=== PATIENT | male | born 1985 | race Caucasian/White ===

== ENCOUNTER 2018-05-15 07:11 | Observation (INO) ==
--- NOTE | 2018-05-15 07:44 | ED ---
HPI General Chief Complaint: Extremity Injury, Lower Stated Complaint: Fall Time Seen by Provider: 05/15/18 07:26 Source: patient Mode of arrival: ambulatory Limitations: no limitations History of Present Illness HPI Narrative: 33-year-old male presents to the emergency department with complaint of right ankle injury after he twisted it this morning. Reports numbness and tingling to his toes, but denies loss of sensation. Rates pain 10/ 10. No treatments tried. Pain is constant. No known relieving factors. Aggravated by palpation, movement. Primary CARE providers in [place]. No known allergies. History of hypertension and is compliant with medications. Has no other medical complaints. No other modifying factors or associated signs and symptoms. Related Data Home Medications Medication Instructions Recorded Confirmed losartan 25 mg PO DAILY 05/15/18 05/15/18 Allergies Allergy/AdvReac Type Severity Reaction Status Date / Time No Known Allergies Allergy Verified 05/15/18 08:13 Review of Systems ROS: all other systems reviewed are negative PMFSH History History Provided By: Patient Medical History Medical History Hypertension (Acute) Surgical History Surgical History No history of previous surgery (Acute) Family History Family History Other Hypertension Social History Social History Second Hand Smoke Exposure: Yes Smoking Status: Current every day smoker Tobacco Type: Cigarettes How Often Do You Have a Drink Containing Alcohol: 4 or more times a week Recent Travel in [facility] within the Last 8 Weeks: No Recent Out of Country Travel within the Last 8 Weeks: No Exam Narrative Exam Narrative: GENERAL: Well-nourished, well-developed male patient, in no acute distress SKIN: Warm and dry. HEAD: Atraumatic. Normocephalic. EYES: Pupils equal and round. No scleral icterus. No injection or drainage. ENT: Mucosa pink and moist. Airway patent. NECK: Trachea midline. CARDIOVASCULAR: Regular rate. RESPIRATORY: No accessory muscle use. GASTROINTESTINAL: Rounded. MUSCULOSKELETAL: Right ankle with point tenderness to the medial malleolar zone with palpation; with edema; no erythema or ecchymosis; no obvious deformity; toes are pink and warm and with good cap refill. Right Lower extremity is supple and nontense with 2+ pedal pulse and sensory intact. No obvious deformities. No clubbing. No cyanosis. No edema. NEUROLOGICAL: Awake and alert. Oriented 3. No obvious cranial nerve deficits. Motor grossly within normal limits. Normal speech. PSYCHIATRIC: Appropriate mood and affect; insight and judgment normal. Course Initial Documented Vital Signs Temperature 98.4 F 05/15/18 07:16 Pulse Rate 102 H 05/15/18 07:16 Respiratory Rate 18 05/15/18 07:16 Blood Pressure 139/90 05/15/18 07:16 Pulse Oximetry 95 05/15/18 07:16 Last Documented Vital Signs Temperature 98.4 F 05/15/18 07:16 Pulse Rate 102 H 05/15/18 07:16 Respiratory Rate 18 05/15/18 07:16 Blood Pressure 139/90 05/15/18 07:16 Pulse Oximetry 95 05/15/18 07:16 Medical Decision Making MDM Narrative Medical decision making narrative: 33-year-old male with right ankle injury. Right ankle x-ray, ibuprofen ordered. Ice pack in place. 0822: Right ankle x-ray concludes mildly displaced bimalleolar fractures. Call placed to orthopedic surgeon. [place] ordered. 0842: I spoke with Dr. Hernández and the patient will be admitted for surgery tomorrow. Díaz splint ordered and placed. Crutches ordered for support. I spoke with resident MD and report given for patient admission. Preop orders entered. Medical Screen Exam Complete: Yes Emergency Medical Condition: Yes Differential Diagnosis Differential Diagnosis: Ankle sprain, ankle fracture, ankle injury Lab Data Result diagrams: 05/15/18 09:00 05/15/18 09:00 Lab Results 05/15/18 05/15/18 05/15/18 Range/Units 09:00 09:00 12:03 WBC 12.1 H (4.0-11.0) th/mm3 RBC 4.85 (4.50-5.90) mil/mm3 Hgb 14.7 (13.0-17.0) gm/dL Hct 44.5 (39.0-51.0) % MCV 91.7 (80.0-100.0) fL MCH 30.4 (27.0-34.0) pg MCHC 33.1 (32.0-36.0) % RDW 13.8 (11.6-17.2) % Plt Count 264 (150-450) th/mm3 MPV 7.8 (7.0-11.0) fL Neut % (Auto) 71.5 H (16.0-70.0) % Lymph % (Auto) 18.2 (9.0-44.0) % [place] % (Auto) 7.8 (0.0-8.0) % Eos % (Auto) 1.7 (0.0-4.0) % Baso % (Auto) 0.8 (0.0-2.0) % Neut # (Auto) 8.6 H (1.8-7.7) th/mm3 Lymph # (Auto) 2.2 (1.0-4.8) th/mm3 [place] # (Auto) 0.9 (0.0-0.9) th/mm3 Eos # (Auto) 0.2 (0.0-0.4) th/mm3 Baso # (Auto) 0.1 (0.0-0.2) th/mm3 WBC Differential . Differential Comment Auto diff final PT (9.8-11.6) sec INR Ratio APTT (24.3-30.1) sec Sodium 137 (136-145) meq/L Potassium 3.9 (3.5-5.1) meq/L Chloride 105 (98-107) meq/L Carbon Dioxide 24.4 (21.0-32.0) meq/L Anion Gap 8 (5-15) meq/L BUN 14 (7-18) mg/dL Creatinine 0.73 (0.60-1.30) mg/dL Estimated GFR Greater than 89 (>89) mL/min Random Glucose 99 (74-106) mg/dL Calcium 8.4 L (8.5-10.1) mg/dL Total Bilirubin 0.2 (0.2-1.0) mg/dL AST 17 (15-37) U/L ALT 33 (12-78) U/L Alkaline Phosphatase 114 (45-117) U/L Total Protein 7.4 (6.4-8.2) g/dL Albumin 3.5 (3.4-5.0) g/dL Blood Type O Positive Blood Type Recheck Required Antibody Screen Negative 05/15/18 Range/Units 12:03 WBC (4.0-11.0) th/mm3 RBC (4.50-5.90) mil/mm3 Hgb (13.0-17.0) gm/dL Hct (39.0-51.0) % MCV (80.0-100.0) fL MCH (27.0-34.0) pg MCHC (32.0-36.0) % RDW (11.6-17.2) % Plt Count (150-450) th/mm3 MPV (7.0-11.0) fL Neut % (Auto) (16.0-70.0) % Lymph % (Auto) (9.0-44.0) % [place] % (Auto) (0.0-8.0) % Eos % (Auto) (0.0-4.0) % Baso % (Auto) (0.0-2.0) % Neut # (Auto) (1.8-7.7) th/mm3 Lymph # (Auto) (1.0-4.8) th/mm3 [place] # (Auto) (0.0-0.9) th/mm3 Eos # (Auto) (0.0-0.4) th/mm3 Baso # (Auto) (0.0-0.2) th/mm3 WBC Differential Differential Comment PT 10.0 (9.8-11.6) sec INR 1.0 Ratio APTT 26.6 (24.3-30.1) sec Sodium (136-145) meq/L Potassium (3.5-5.1) meq/L Chloride (98-107) meq/L Carbon Dioxide (21.0-32.0) meq/L Anion Gap (5-15) meq/L BUN (7-18) mg/dL Creatinine (0.60-1.30) mg/dL Estimated GFR (>89) mL/min Random Glucose (74-106) mg/dL Calcium (8.5-10.1) mg/dL Total Bilirubin (0.2-1.0) mg/dL AST (15-37) U/L ALT (12-78) U/L Alkaline Phosphatase (45-117) U/L Total Protein (6.4-8.2) g/dL Albumin (3.4-5.0) g/dL Blood Type Blood Type Recheck Antibody Screen Imaging Data Radiologist's impression: Ankle X-Ray 05/15/18 07:36 CONCLUSION: Mildly displaced bimalleolar fractures Discharge Plan Discharge Disposition Patient Disposition: 30 Still Patient Discharge Condition Condition: Stable Discharge Details Diagnosis: Bimalleolar fracture of right ankle Physicians Team ED Provider: Juan Carlos Soto ED Midlevel Provider: Minerva Crum Primary Care Provider: UNKNOWN, Attending Provider: Baljit Meek Other Providers: Diego Ivan Status ED Status: Left Department Discharge Information Discharge Date/Time: 05/15/18 10:26
--- NOTE | 2018-05-15 08:15 | XR ---
EXAM DATE: 05/15/2018 7:36 AM EDT AGE/SEX: 33 years / Male INDICATIONS: Right lateral and medial ankle pain, post fall. CLINICAL DATA: This is the patient's initial encounter. Patient reports that signs and symptoms have been present for 1 day and indicates a pain score of 8/10. MEDICAL/SURGICAL HISTORY: None. None. COMPARISON: No prior exams available for comparison. FINDINGS: Views of the right ankle demonstrate soft tissue swelling. Bimalleolar fractures with mild displaceme nt. Ankle mortise intact. No radiopaque foreign bodies seen. CONCLUSION: Mildly displaced bimalleolar fractures Electronically signed by: Lewis Kwan MD 05/15/2018 8:13 AM EDT
[2018-05-15 09:30] LABS: Baso # (Auto) 0.1 th/mm3 (0.0-0.2); Baso % (Auto) 0.8 % (0.0-2.0); Eos # (Auto) 0.2 th/mm3 (0.0-0.4); Eos % (Auto) 1.7 % (0.0-4.0); Hematocrit 44.5 % (39.0-51.0); Hemoglobin 14.7 gm/dL (13.0-17.0); Lymph # (Auto) 2.2 th/mm3 (1.0-4.8); Lymph % (Auto) 18.2 % (9.0-44.0); Mean Corpuscular HGB Conc 33.1 % (32.0-36.0); Mean Corpuscular Hemoglobin 30.4 pg (27.0-34.0); Mean Corpuscular Volume 91.7 fL (80.0-100.0); Mean Platelet Volume 7.8 fL (7.0-11.0); Mono # (Auto) 0.9 th/mm3 (0.0-0.9); Mono % (Auto) 7.8 % (0.0-8.0); Neut # (Auto) 8.6 th/mm3 (1.8-7.7); Neut % (Auto) 71.5 % (16.0-70.0); Platelet Count 264 th/mm3 (150-450); Red Blood Count 4.85 mil/mm3 (4.50-5.90); Red Cell Distribution Width 13.8 % (11.6-17.2); White Blood Count 12.1 th/mm3 (4.0-11.0)
--- NOTE | 2018-05-15 09:34 | P.HPFP ---
History of Present Illness Primary Care Physician: UNKNOWN <Baljit Meek K - 05/15/18 15:01> UNKNOWN <Regi Del Rio T - 05/15/18 09:34> History of Present Illness: 33-year-old male with hypertension presents to the ED with right ankle pain. Patient is visiting from [place], [place]. He states that he is here with his kids and their mother. States that he woke up in the middle the night and went outside to smoke a cigarette. He then fell asleep and woke up with his leg caught in the rail. As he was standing up, he tripped and fell. He began to have swelling and redness immediately in his right ankle. He was unable to bear weight. He did not hit his head and denies loss of consciousness. Denies nausea and vomiting, vision changes, headache, seizure- like activity, chest pain, shortness of breath. He has not injured his ankle in the past. He states that his left ankle collapse about 3 years ago. States that his pain is 6 out of 10 right now after receiving pain medications in the ED. He is able to wiggle his toes and sensation is intact. No other complaints. 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[employer] Smoking 1-1/2ppd for 19 years Drinking- 4 days a week- 2-3 beers Denies illicit drug use <Regi Del iRo T - 05/15/18 10:33> - Diagnosis (1) Bimalleolar fracture of right ankle (2) Hypertension (3) Nutrition, metabolism, and development symptoms (4) Current smoker <Baljit Meek K - 05/15/18 15:01> (1) Bimalleolar fracture of right ankle (2) Hypertension (3) Nutrition, metabolism, and development symptoms (4) Current smoker <Regi Del Rio T - 05/15/18 13:57> Inpatient Certification: I certify that the inpatient services were ordered in accordance with Medicare regulations governing the order. This includes certification that hospital inpatient services are reasonable and necessary and in the case of services not specified as inpatient-only under 42 CFR 419.22(n), that they are appropriately provided as inpatient services in accordance to with the 2-midnight benchmark under 43 CFR 412.3(e) <Baljit Meek 05/15/18 15:01> Review of Systems Constitutional: Denies fever(s), Denies weakness, Denies weight loss <Regi Del Rio 05/15/18 10:33> Eyes: Denies blurry vision <Regi Del Rio 05/15/18 10:33> Ears, Nose, Mouth, and Throat: Denies headache(s) <Regi Del Rio 11:12> Cardiovascular: Denies chest pain, Denies lightheadedness, Denies shortness of breath <Regi Del Rio 05/15/18 10:33> Respiratory: Denies cough, Denies shortness of breath, Denies wheezing <Regi Del Rio 05/15/18 10:33> Gastrointestinal: Denies abdominal pain, Denies vomiting <Regi Del Rio 05/15/18 10:33> Genitourinary: Denies difficulty urinating <Regi Del Rio 05/15/18 10:33> Comments: Psoriasis rash on left ankle <Regi Del Rio 05/15/18 11:12> Neurologic: Denies confusion, Denies tingling/numbness/burning sensations <Regi Del Rio 05/15/18 11:12> Endocrine: Denies rapid, pounding, or irregular heartbeat <Regi Del Rio 05/15/18 11:12> Hematologic/Lymphatic: Denies easy bleeding <Regi Del Rio 05/15/18 11:12 > PMFSH - History History Provided By: Patient <QuangRegikinjal Solitario 05/15/18 09:34> - Medical History Medical History: Medical History (Last Updated 05/15/18 @ 07:39 by POLO Gutiérrez) Hypertension <Baljit Meek - 05/15/18 15:01> Medical History (Last Updated 05/15/18 @ 07:39 by POLO Gutiérrez) Hypertension <Regi Del Rio 05/15/18 09:34> - Surgical History Surgical History: Surgical History (Last Updated 05/15/18 @ 11:09 by Regi Del Rio MD, R2) No history of previous surgery <Baljit Meek - 05/15/18 15:01> Surgical History (Last Updated 05/15/18 @ 11:09 by Regi Del Rio MD, R2) No history of previous surgery <Regi Del Rio - 05/15/18 11:12> - Family History Family History: Family History (Last Updated 05/15/18 @ 11:10 by Regi Del Rio MD, R2) Other Hypertension <Baljit Meek - 05/15/18 15:01> Family History (Last Updated 05/15/18 @ 11:10 by Regi Del Rio MD, R2) Other Hypertension <Regi Del Rio - 05/15/18 11:12> - Social History I have reviewed the patient's Social History: Yes <Regi Del Rio - 11:12> - Tobacco History Second Hand Smoke Exposure: Yes <Regi Del Rio - 05/15/18 09:34> Tobacco Use In Past 30 Days: Yes <Regi Del Rio - 05/15/18 09:34> Smoking Status: Current every day smoker <Regi Del Rio - 05/15/18 09:34> Tobacco Type: Cigarettes <Regi Del Rio - 05/15/18 09:34> - Alcohol History How Often Do You Have a Drink Containing Alcohol: 4 or more times a week <Regi Del Rio - 05/15/18 09:34> - Travel History Recent Travel in the [facility] Within the Last 8 Weeks: No <Regi Del Rio - 05/15 09:34> Recent Travel Out of the Country Within the Last 8 Weeks: No <Regi Del Rio - 05/15/18 09:34> - Immunization History Tetanus Immunization: <5 Years <Regi Del Rio - 05/15/18 09:34> Medications and Allergies Allergies Allergy/AdvReac Type Severity Reaction Status Date / Time No Known Allergies Allergy Verified 05/15/18 08:13 <Baljit Meek - 05/15/18 15:01> Home Medications Medication Instructions Recorded Confirmed Type losartan 25 mg PO DAILY 05/15/18 05/15/18 History <Baljit Meek - 05/15/18 15:01> Active Medications: Active Medications Hydrocodone Bitart/Acetaminophen (Merriman 7.5/325) 1 tab PO Q4H PRN PRN Reason: PAIN SCALE 6 TO 10 Last Admin: 05/15/18 12:05 Dose: 1 tab Hydrocodone Bitart/Acetaminophen (Merriman 5/325) 1 tab PO Q4H PRN PRN Reason: PAIN SCALE 3 TO 5 Hydrochlorothiazide (Hydrodiuril) 25 mg PO DAILY REPLACED BY [facility] Last Admin: 05/15/18 13:58 Dose: Not Given Ibuprofen (Motrin) 400 mg PO Q6HR PRN PRN Reason: PAIN SCALE 1 TO 2 Losartan Potassium (Cozaar) 100 mg PO DAILY REPLACED BY [facility] Last Admin: 05/15/18 13:57 Dose: Not Given Morphine Sulfate (Morphine Inj) 4 mg IV.PUSH Q3H PRN PRN Reason: BREAKTHROUGH PAIN Naloxone HCl (Narcan Inj) 0.4 mg IV.PUSH UNSCH PRN PRN Reason: SEE LABEL COMMENTS Nicotine (Habitrol 21 Mg Patch.24 Hr) 1 patch T-DERMAL DAILY REPLACED BY [facility] Patch Removal (Remove Old Patch) 1 each T-DERMAL HS REPLACED BY [facility] <Baljit Meek - 05/15/18 15:01> Exam Vital signs: Vital Signs 05/15/18 07:16 Temperature 98.4 F Pulse Rate 102 H Respiratory Rate 18 Blood Pressure 139/90 Pulse Oximetry 95 Intake & Output 05/14/18 05/15/18 05/15/18 18:59 06:59 18:59 Weight 136.078 kg <Baljit Meek - 05/15/18 15:01> Vital Signs 05/15/18 07:16 Temperature 98.4 F Pulse Rate 102 H Respiratory Rate 18 Blood Pressure 139/90 Pulse Oximetry 95 Intake & Output 05/14/18 05/15/18 05/15/18 18:59 06:59 18:59 Weight 136.078 kg <Regi Del Rio T - 05/15/18 09:34> Narrative: General: Pleasant male in no acute distress HENT: PERRLA, EOMI, throat clear, no lymphadenopathy Cardio: Regular rate rhythm, no murmurs rubs or gallops Respiratory: Clear to auscultation bilaterally no wheezing or crackles Abdomen: Soft, nontender, nondistended, positive bowel sounds Extremities: Right leg wrapped in bandage, patient able to wiggle right toes, sensation intact Neuro: Alert and oriented <Regi Del Rio - 05/15/18 11:12> Results - Labs Result diagrams: 05/15/18 09:00 05/15/18 09:00 <Baljit Meek 05/15/18 15:01> Abnormal lab results 05/15/18 05/15/18 Range/Units 09:00 09:00 WBC 12.1 H (4.0-11.0) th/mm3 Neut % (Auto) 71.5 H (16.0-70.0) % Neut # (Auto) 8.6 H (1.8-7.7) th/mm3 Calcium 8.4 L (8.5-10.1) mg/dL Short CBC 05/15/18 Range/Units 09:00 WBC 12.1 H (4.0-11.0) th/mm3 Hgb 14.7 (13.0-17.0) gm/dL Hct 44.5 (39.0-51.0) % Plt Count 264 (150-450) th/mm3 [facility] 05/15/18 09:00 Sodium 137 Potassium 3.9 Chloride 105 Carbon Dioxide 24.4 BUN 14 Creatinine 0.73 Calcium 8.4 L Liver Function 05/15/18 Range/Units 09:00 Total Bilirubin 0.2 (0.2-1.0) mg/dL AST 17 (15-37) U/L ALT 33 (12-78) U/L Alkaline Phosphatase 114 (45-117) U/L Albumin 3.5 (3.4-5.0) g/dL <Baljit Meek - 05/15/18 15:01> - Imaging Impressions Ankle X-Ray 05/15/18 07:36 CONCLUSION: Mildly displaced bimalleolar fractures <Baljit Meek 05/15/18 15:01> Impressions Ankle X-Ray 05/15/18 07:36 CONCLUSION: Mildly displaced bimalleolar fractures <Regi Del Rio - 05/15/18 09:34> Caprini VTE Risk Assessment Caprini VTE Risk Assessment: No/Low Risk (score <= 1) <Regi Del Rio 05/23 11:12> Caprini Risk Assessment Model: Point Value = 1 Point Value = 2 Point Value = 3 Point Value = 5 Age 41-60 Minor surgery BMI > 25 kg/m2 Swollen legs Varicose veins or History of unexplained or recurrent spontaneous Oral contraceptives or hormone replacement Sepsis (< 1 month) Serious lung disease, including pneumonia (< 1 month) Abnormal pulmonary function Acute myocardial infarction Congestive heart failure (< 1 month) History of inflammatory bowel disease Medical patient at bed rest Age 61-74 Arthroscopic surgery Major open surgery (> 45 min) Laparoscopic surgery (> 45 min) Malignancy Confined to bed (> 72 hours) Immobilizing plaster cast Central venous access Age >= 75 History of VTE Family history of VTE Factor V Leiden Prothrombin [id number] Lupus anticoagulant Anticardiolipin antibodies Elevated serum homocysteine Heparin-induced thrombocytopenia Other congenital or acquired thrombophilia Stroke (< 1 month) Elective arthroplasty Hip, pelvis, or leg fracture Acute spinal cord injury (< 1 month) <Baljit Meek K - 05/15/18 15:01> Point Value = 1 Point Value = 2 Point Value = 3 Point Value = 5 Age 41-60 Minor surgery BMI > 25 kg/m2 Swollen legs Varicose veins or History of unexplained or recurrent spontaneous Oral contraceptives or hormone replacement Sepsis (< 1 month) Serious lung disease, including pneumonia (< 1 month) Abnormal pulmonary function Acute myocardial infarction Congestive heart failure (< 1 month) History of inflammatory bowel disease Medical patient at bed rest Age 61-74 Arthroscopic surgery Major open surgery (> 45 min) Laparoscopic surgery (> 45 min) Malignancy Confined to bed (> 72 hours) Immobilizing plaster cast Central venous access Age >= 75 History of VTE Family history of VTE Factor V Leiden Prothrombin [id number] Lupus anticoagulant Anticardiolipin antibodies Elevated serum homocysteine Heparin-induced thrombocytopenia Other congenital or acquired thrombophilia Stroke (< 1 month) Elective arthroplasty Hip, pelvis, or leg fracture Acute spinal cord injury (< 1 month) <Regi Del Rio 05/15/18 11:12> Prophylaxis Regimen: Total Risk Factor Score Risk Level Prophylaxis Regimen 0-1 Low Early ambulation 2 Moderate Order ONE of the following: *Sequential Compression Device (SCD) *Heparin 5000 units SQ BID 3-4 Higher Order ONE of the following medications: *Heparin 5000 units SQ TID *Enoxaparin/Lovenox 40 mg SQ daily (WT < 150 kg, CrCl > 30 mL/min) *Enoxaparin/Lovenox 30 mg SQ daily (WT < 150 kg, CrCl > 10-29 mL/min) *Enoxaparin/Lovenox 30 mg SQ BID (WT < 150 kg, CrCl > 30 mL/min) AND/OR *Sequential Compression Device (SCD) 5 or more Highest Order ONE of the following medications: *Heparin 5000 units SQ TID (Preferred with Epidurals) *Enoxaparin/Lovenox 40 mg SQ daily (WT < 150 kg, CrCl > 30 mL/min) *Enoxaparin/Lovenox 30 mg SQ daily (WT < 150 kg, CrCl > 10-29 mL/min) *Enoxaparin/Lovenox 30 mg SQ BID (WT < 150 kg, CrCl > 30 mL/min) AND *Sequential Compression Device (SCD) <Baljit Meek - 05/15/18 15:01> Total Risk Factor Score Risk Level Prophylaxis Regimen 0-1 Low Early ambulation 2 Moderate Order ONE of the following: *Sequential Compression Device (SCD) *Heparin 5000 units SQ BID 3-4 Higher Order ONE of the following medications: *Heparin 5000 units SQ TID *Enoxaparin/Lovenox 40 mg SQ daily (WT < 150 kg, CrCl > 30 mL/min) *Enoxaparin/Lovenox 30 mg SQ daily (WT < 150 kg, CrCl > 10-29 mL/min) *Enoxaparin/Lovenox 30 mg SQ BID (WT < 150 kg, CrCl > 30 mL/min) AND/OR *Sequential Compression Device (SCD) 5 or more Highest Order ONE of the following medications: *Heparin 5000 units SQ TID (Preferred with Epidurals) *Enoxaparin/Lovenox 40 mg SQ daily (WT < 150 kg, CrCl > 30 mL/min) *Enoxaparin/Lovenox 30 mg SQ daily (WT < 150 kg, CrCl > 10-29 mL/min) *Enoxaparin/Lovenox 30 mg SQ BID (WT < 150 kg, CrCl > 30 mL/min) AND *Sequential Compression Device (SCD) <Eros Del Riokinjal Solitario T - 05/15/18 09:34> Assessment and Plan - Assessment (1) Bimalleolar fracture of right ankle Code(s): S82.841A - Displaced bimalleolar fracture of right lower leg, initial encounter for closed fracture Status: Acute (2) Hypertension Code(s): I10 - Essential (primary) hypertension Status: Acute (3) Nutrition, metabolism, and development symptoms Code(s): R63.8 - Other symptoms and signs concerning food and fluid intake Status: Acute (4) Current smoker Code(s): F17.200 - Nicotine dependence, unspecified, uncomplicated Status: Acute <FantasmaBaljit K - 05/15/18 15:01> (1) Bimalleolar fracture of right ankle Code(s): S82.841A - Displaced bimalleolar fracture of right lower leg, initial encounter for closed fracture Status: Acute (2) Hypertension Code(s): I10 - Essential (primary) hypertension Status: Acute (3) Nutrition, metabolism, and development symptoms Code(s): R63.8 - Other symptoms and signs concerning food and fluid intake Status: Acute (4) Current smoker Code(s): F17.200 - Nicotine dependence, unspecified, uncomplicated Status: Acute <Eros Del Riokinjal Solitario - 05/15/18 13:57> - Assessment and Plan 33-year-old male with history of hypertension presents the ED with right ankle pain. X-ray demonstrates mildly displaced bimalleolar fractures. Mildly displaced bimalleolar fracture right ankle -Orthopedic surgery consulted, appreciate recommendations. Dr. Ivan will take patient to the OR tomorrow morning. -N.p.o. at midnight -Pain control with Merriman and morphine -Type and screen, coag profile pending Hypertension -Continue home losartan and HCTZ Current smoker -Nicotine patch -Remove at night Fluids: PO hydration Diet: Cardiac diet, NPO after midnight vitals every 4, monitor I's and O's DVT ppx: SCD on left leg, Lovenox one time dose, will coordinate with ortho for VTE ppx post surgery <Regi Del Rio - 05/15/18 13:58> - Attending Attestation The exam, history, and the medical decision-making described in the above note were completed with the assistance of the resident physician. I reviewed and agree with the findings presented. I attest that I had a [id number] encounter with the patient on the same day, and personally performed and documented my assessment and findings in the medical record. Reviewed and agree with resident histories, only modification is that it happened about 5 am today. He tripped because it was dark and he had not been drinking. typically drinks 2-12 beers on any given day, about 3-4/wk. He often goes 3-4 days without drinking anything especially after a night of heavy drinking. He has not had DTs or seizures before but does think he has had resulting tachycardia. Gen: NAD, alert HEENT: EOMI PERRL, MMM, trachea midline, no jvd CV: RRR no murmur s1 s2, good radial pulse Pulm: CTAB, no w/r/c, no increased resp effort Abd: soft ntnd +bs, no r/g, no HSM Ext: no cyanosis or clubbing Ankle: did not test ROM as already evaluated and do not want to displace further , mild surrounding edema and edema, good cap refill and sensation at toes, he also has good movement of toes and sensation to lateral and medial foot. Skin intact L Bi malleolar ankle fracture mild displacement of fibular fracture ED d/w ortho, will take for reduction and fixation in AM pain control HTN cont home meds and monitor Tobacco use nicotine patch Alcohol overuse will monitor for signs of w/d and start CIWA as needed ppx: lovenox once today <Baljit Meek 05/15/18 15:01>
[2018-05-15 09:45] LABS: Alanine Aminotransferase 33 U/L (12-78); Albumin 3.5 g/dL (3.4-5.0); Anion Gap 8 meq/L (5-15); Aspartate Aminotransferase 17 U/L (15-37); Blood Urea Nitrogen 14 mg/dL (7-18); Calcium 8.4 mg/dL (8.5-10.1); Carbon Dioxide 24.4 meq/L (21.0-32.0); Chloride 105 meq/L (98-107); Glomerular Filtration Rate Greater Than 89 mL/min (>89); Glucose,Random 99 mg/dL (74-106); Potassium 3.9 meq/L (3.5-5.1); Sodium 137 meq/L (136-145)
[2018-05-15 09:50] LABS: Alkaline Phosphatase 114 U/L (45-117); Total Protein 7.4 g/dL (6.4-8.2)
[2018-05-15] MEDS ORDERED: Ibuprofen 400 MG Tablet PO PRN (11:00)
[2018-05-15] MEDS ORDERED: Naloxone Inj 0.4 MG/ML Vial IV.PUSH PRN (11:00)
[2018-05-15 13:06] LABS: Activated Partial Thrombo Time 26.6 sec (24.3-30.1)
[2018-05-15] MEDS ORDERED: Enoxaparin Inj 40 MG/0.4 ML Syringe SQ ONE (13:30)
[2018-05-15] MEDS: hydroCHLOROthiazide 25 MG Tablet PO SCH (13:58)
[2018-05-16 07:20] LABS: Baso # (Auto) 0.1 th/mm3 (0.0-0.2); Baso % (Auto) 0.5 % (0.0-2.0); Eos # (Auto) 0.2 th/mm3 (0.0-0.4); Eos % (Auto) 1.2 % (0.0-4.0); Hemoglobin 14.5 gm/dL (13.0-17.0); Lymph # (Auto) 2.1 th/mm3 (1.0-4.8); Lymph % (Auto) 15.3 % (9.0-44.0); Mean Corpuscular HGB Conc 34.7 % (32.0-36.0); Mean Corpuscular Volume 89.5 fL (80.0-100.0); Mean Platelet Volume 7.7 fL (7.0-11.0); Mono # (Auto) 1.1 th/mm3 (0.0-0.9); Mono % (Auto) 8.2 % (0.0-8.0); Neut # (Auto) 10.1 th/mm3 (1.8-7.7); Neut % (Auto) 74.8 % (16.0-70.0); Platelet Count 274 th/mm3 (150-450); Red Blood Count 4.69 mil/mm3 (4.50-5.90); Red Cell Distribution Width 13.6 % (11.6-17.2); White Blood Count 13.5 th/mm3 (4.0-11.0)
[2018-05-16 07:39] LABS: Anion Gap 7 meq/L (5-15); Blood Urea Nitrogen 13 mg/dL (7-18); Calcium 8.9 mg/dL (8.5-10.1); Carbon Dioxide 27.2 meq/L (21.0-32.0); Chloride 103 meq/L (98-107); Glomerular Filtration Rate Greater Than 89 mL/min (>89); Glucose,Random 97 mg/dL (74-106); Sodium 137 meq/L (136-145)
[2018-05-16] MEDS: Morphine Inj 4 MG/ML Vial IV.PUSH PRN ×2 (07:55→18:19)
[2018-05-16] MEDS: hydroCHLOROthiazide 25 MG Tablet PO SCH (08:00)
--- NOTE | 2018-05-16 08:27 | P.CONOP ---
[facility] Orthopedics Consult Note - [facility] Consult date: 05/16/18 Requesting physician: Regi Del Rio Consult reason: fracture Chief complaint: Right Ankle Fracture Narrative: 33-year-old male with hypertension presents to the ED with right ankle pain. Patient is visiting from [place], [place]. He states that he is here with his kids and their mother. States that he woke up in the middle the night and went outside to smoke a cigarette. He then fell asleep and woke up with his leg caught in the rail. As he was standing up, he tripped and fell. He began to have swelling and redness immediately in his right ankle. He was unable to bear weight. He did not hit his head and denies loss of consciousness. Denies nausea and vomiting, vision changes, headache, seizure- like activity, chest pain, shortness of breath. He has not injured his ankle in the past. He states that his left ankle collapse about 3 years ago. States that his pain is 6 out of 10 right now after receiving pain medications in the ED. He is able to wiggle his toes and sensation is intact. No other complaints. I have been asked to see him in consultation regarding the fracture of his right ankle. Review of Systems Constitutional: Denies anorexia Eyes: Denies blurry vision Ears, Nose, Mouth, and Throat: Denies abnormal hearing Cardiovascular: Denies chest pain Respiratory: Denies chest congestion, Denies cough Gastrointestinal: Denies abdominal pain Musculoskeletal: Reports joint pain, Reports joint swelling Neurologic: Denies abnormal movements Psychiatric: Denies anxiety PMFSH - History History Provided By: Patient - Medical History Medical History: Medical History (Last Updated 05/15/18 @ 07:39 by POLO Gutiérrez) Hypertension - Surgical History Surgical History: Surgical History (Last Updated 05/15/18 @ 11:09 by Regi Del Rio MD, R2) No history of previous surgery - Family History Family History: Family History (Last Updated 05/15/18 @ 11:10 by Regi Del Rio MD, R2) Other Hypertension - Tobacco History Second Hand Smoke Exposure: Yes Tobacco Use In Past 30 Days: Yes Smoking Status: Current every day smoker Tobacco Type: Cigarettes - Alcohol History How Often Do You Have a Drink Containing Alcohol: 4 or more times a week - Travel History Recent Travel in the [facility] Within the Last 8 Weeks: No Recent Travel Out of the Country Within the Last 8 Weeks: No - Immunization History Tetanus Immunization: <5 Years Medications and Allergies Active Medications: Active Medications Hydrocodone Bitart/Acetaminophen ([place] 7.5/325) 1 tab PO Q4H PRN PRN Reason: PAIN SCALE 6 TO 10 Last Admin: 05/16/18 04:09 Dose: 1 tab Hydrocodone Bitart/Acetaminophen ([place] 5/325) 1 tab PO Q4H PRN PRN Reason: PAIN SCALE 3 TO 5 Hydrochlorothiazide (Hydrodiuril) 25 mg PO DAILY [facility] Last Admin: 05/16/18 08:00 Dose: 25 mg Ibuprofen (Motrin) 400 mg PO Q6HR PRN PRN Reason: PAIN SCALE 1 TO 2 Losartan Potassium (Cozaar) 100 mg PO DAILY [facility] Last Admin: 05/16/18 08:00 Dose: 100 mg Morphine Sulfate (Morphine Inj) 4 mg IV.PUSH Q3H PRN PRN Reason: BREAKTHROUGH PAIN Last Admin: 05/16/18 07:55 Dose: 4 mg Naloxone HCl (Narcan Inj) 0.4 mg IV.PUSH UNSCH PRN PRN Reason: SEE LABEL COMMENTS Nicotine (Habitrol 21 Mg Patch.24 Hr) 1 patch T-DERMAL DAILY [facility] Last Admin: 05/16/18 08:01 Dose: Not Given Patch Removal (Remove Old Patch) 1 each T-DERMAL HS [facility] Last Admin: 05/15/18 22:53 Dose: 1 each Allergies Allergy/AdvReac Type Severity Reaction Status Date / Time No Known Allergies Allergy Verified 05/15/18 08:13 Home Medications Medication Instructions Recorded Confirmed Type losartan 25 mg PO DAILY 05/15/18 05/15/18 History Exam Vital signs: Vital Signs 05/15/18 12:00 05/15/18 16:00 05/15/18 20:00 Temperature 97.9 F 97.2 F L Pulse Rate 75 74 73 Respiratory Rate 15 17 20 Blood Pressure 137/87 132/80 128/82 Pulse Oximetry 96 05/16/18 00:00 05/16/18 04:00 Temperature 97.2 F L 97.7 F Pulse Rate 79 91 H Respiratory Rate 18 18 Blood Pressure 146/84 H 125/80 Pulse Oximetry 94 L 96 Intake & Output 05/15/18 05/16/18 05/16/18 18:59 06:59 18:59 Intake Total 480 / 480 Output Total 500 / 500 2200 / 2200 Balance -500 / -500 -1720 / -1720 Weight 136.078 kg 136.1 kg Intake: Oral 480 / 480 Output: Urine 500 / 500 2200 / 2200 Other: # Voids 1 Narrative: HEENT: Normocephalic atraumatic pupils equal round reactive. NECK: Supple. No abnormal masses. Full range of motion. CHEST: Clear to auscultation with no rales or rhonchi's or wheezes. HEART: Regular rate and rhythm. No murmurs. ABDOMEN: Soft, nontender, no masses. Normal active bowel sounds. GENITOURINARY: Deferred MUSCULOSKELETAL: Right ankle is in a splint. Mild swelling. He wiggles his toes. Sensation is normal. Alignment is satisfactory Results - Labs Result Diagrams: 05/16/18 06:29 05/16/18 06:29 Labs: Laboratory Results - last 24 hr 05/15/18 05/15/18 05/15/18 09:00 09:00 12:03 WBC 12.1 H RBC 4.85 Hgb 14.7 Hct 44.5 MCV 91.7 MCH 30.4 MCHC 33.1 RDW 13.8 Plt Count 264 MPV 7.8 Neut % (Auto) 71.5 H Lymph % (Auto) 18.2 [place] % (Auto) 7.8 Eos % (Auto) 1.7 Baso % (Auto) 0.8 Neut # (Auto) 8.6 H Lymph # (Auto) 2.2 [place] # (Auto) 0.9 Eos # (Auto) 0.2 Baso # (Auto) 0.1 WBC Differential . Differential Comment Auto diff final PT INR APTT Sodium 137 Potassium 3.9 Chloride 105 Carbon Dioxide 24.4 Anion Gap 8 BUN 14 Creatinine 0.73 Estimated GFR Greater than 89 Random Glucose 99 Calcium 8.4 L Total Bilirubin 0.2 AST 17 ALT 33 Alkaline Phosphatase 114 Total Protein 7.4 Albumin 3.5 Blood Type O Positive Blood Type Recheck Required Antibody Screen Negative 05/15/18 05/16/18 05/16/18 12:03 06:29 06:29 WBC 13.5 H RBC 4.69 Hgb 14.5 Hct 42.0 MCV 89.5 MCH 31.0 MCHC 34.7 RDW 13.6 Plt Count 274 MPV 7.7 Neut % (Auto) 74.8 H Lymph % (Auto) 15.3 [place] % (Auto) 8.2 H Eos % (Auto) 1.2 Baso % (Auto) 0.5 Neut # (Auto) 10.1 H Lymph # (Auto) 2.1 [place] # (Auto) 1.1 H Eos # (Auto) 0.2 Baso # (Auto) 0.1 WBC Differential . Differential Comment Auto diff final PT 10.0 INR 1.0 APTT 26.6 Sodium 137 Potassium 4.0 Chloride 103 Carbon Dioxide 27.2 Anion Gap 7 BUN 13 Creatinine 0.82 Estimated GFR Greater than 89 Random Glucose 97 Calcium 8.9 Total Bilirubin AST ALT Alkaline Phosphatase Total Protein Albumin Blood Type Blood Type Recheck Antibody Screen - Diagnostic results Imaging: Review of x-ray shows evidence of a bimalleolar displaced right ankle fracture. No dislocation. No trimalleolar fragment. Assessment and Plan - Assessment and Plan Bimalleolar right ankle fracture. Hypertension. PLAN: Surgery: Open treatment and internal fixation right ankle fracture with plates and screws. Consent: There are risks of surgery including infection, bleeding, loss of motion, continued pain, need for further surgery, neurologic or vascular injury. The patient understands he will be nonweightbearing on this ankle for approximately 8 weeks. He understands the issues above and wishes to proceed forward with surgery as outlined above
--- NOTE | 2018-05-16 10:24 | P.PNFP ---
Subjective Interval history: No acute events overnight. Patient doing well this morning. Patient will be going for surgery today for internal fixation of right ankle fracture with plates and screws. He was n.p.o. after midnight. Denies fevers, chest pain, shortness of breath, nausea vomiting, abdominal pain. Ankle pain is well controlled with pain meds. No other complaints. <QuangRegi T - 05/16/18 11:16> Results - Labs Result diagrams: 05/16/18 06:29 05/16/18 06:29 <Baljit Meek - 05/16/18 12:21> Abnormal lab results 05/16/18 Range/Units 06:29 WBC 13.5 H (4.0-11.0) th/mm3 Neut % (Auto) 74.8 H (16.0-70.0) % [place] % (Auto) 8.2 H (0.0-8.0) % Neut # (Auto) 10.1 H (1.8-7.7) th/mm3 [place] # (Auto) 1.1 H (0.0-0.9) th/mm3 Short CBC 05/16/18 Range/Units 06:29 WBC 13.5 H (4.0-11.0) th/mm3 Hgb 14.5 (13.0-17.0) gm/dL Hct 42.0 (39.0-51.0) % Plt Count 274 (150-450) th/mm3 [facility] 05/16/18 06:29 Sodium 137 Potassium 4.0 Chloride 103 Carbon Dioxide 27.2 BUN 13 Creatinine 0.82 Calcium 8.9 <Baljit Meek - 05/16/18 12:21> Abnormal lab results 05/16/18 Range/Units 06:29 WBC 13.5 H (4.0-11.0) th/mm3 Neut % (Auto) 74.8 H (16.0-70.0) % [place] % (Auto) 8.2 H (0.0-8.0) % Neut # (Auto) 10.1 H (1.8-7.7) th/mm3 [place] # (Auto) 1.1 H (0.0-0.9) th/mm3 Short CBC 05/16/18 Range/Units 06:29 WBC 13.5 H (4.0-11.0) th/mm3 Hgb 14.5 (13.0-17.0) gm/dL Hct 42.0 (39.0-51.0) % Plt Count 274 (150-450) th/mm3 BMP 05/16/18 06:29 Sodium 137 Potassium 4.0 Chloride 103 Carbon Dioxide 27.2 BUN 13 Creatinine 0.82 Calcium 8.9 <QuangOrionjacqueline Solitario T - 05/16/18 10:24> Physical Exam Vital signs: Vital Signs 05/15/18 16:00 05/15/18 20:00 05/16/18 00:00 Temperature 97.9 F 97.2 F L 97.2 F L Pulse Rate 74 73 79 Respiratory Rate 17 20 18 Blood Pressure 132/80 128/82 146/84 H Pulse Oximetry 96 94 L 05/16/18 04:00 05/16/18 08:00 Temperature 97.7 F 98.0 F Pulse Rate 91 H 88 Respiratory Rate 18 23 Blood Pressure 125/80 130/83 Pulse Oximetry 96 94 L Intake & Output 05/15/18 05/16/18 05/16/18 18:59 06:59 18:59 Intake Total 480 / 480 Output Total 500 / 500 2200 / 2200 Balance -500 / -500 -1720 / -1720 Weight 136.078 kg 136.1 kg Intake: Oral 480 / 480 Output: Urine 500 / 500 2200 / 2200 Other: # Voids 1 <Baljit Meek K - 05/16/18 12:21> Vital Signs 05/15/18 12:00 05/15/18 16:00 05/15/18 20:00 Temperature 97.9 F 97.2 F L Pulse Rate 75 74 73 Respiratory Rate 15 17 20 Blood Pressure 137/87 132/80 128/82 Pulse Oximetry 96 05/16/18 00:00 05/16/18 04:00 05/16/18 08:00 Temperature 97.2 F L 97.7 F 98.0 F Pulse Rate 79 91 H 88 Respiratory Rate 18 18 23 Blood Pressure 146/84 H 125/80 130/83 Pulse Oximetry 94 L 96 94 L Intake & Output 05/15/18 05/16/18 05/16/18 18:59 06:59 18:59 Intake Total 480 / 480 Output Total 500 / 500 2200 / 2200 Balance -500 / -500 -1720 / -1720 Weight 136.078 kg 136.1 kg Intake: Oral 480 / 480 Output: Urine 500 / 500 2200 / 2200 Other: # Voids 1 <Regi Del Rio - 05/16/18 10:24> Narrative: HEENT: Normocephalic atraumatic pupils equal round reactive. NECK: Supple. No abnormal masses. Full range of motion. CHEST: Clear to auscultation with no rales or rhonchi's or wheezes. HEART: Regular rate and rhythm. No murmurs. ABDOMEN: Soft, nontender, no masses. Normal active bowel sounds. MUSCULOSKELETAL: Right ankle is in a splint. Mild swelling. He wiggles his toes. Sensation is normal. <Regi Del Rio - 05/16/18 11:16> Assessment and Plan - Assessment (1) Bimalleolar fracture of right ankle Code(s): S82.841A - Displaced bimalleolar fracture of right lower leg, initial encounter for closed fracture Status: Acute (2) Hypertension Code(s): I10 - Essential (primary) hypertension Status: Acute (3) Nutrition, metabolism, and development symptoms Code(s): R63.8 - Other symptoms and signs concerning food and fluid intake Status: Acute (4) Current smoker Code(s): F17.200 - Nicotine dependence, unspecified, uncomplicated Status: Acute <Baljit Meek Herminio - 05/16/18 12:21> (1) Bimalleolar fracture of right ankle Code(s): S82.841A - Displaced bimalleolar fracture of right lower leg, initial encounter for closed fracture Status: Acute (2) Hypertension Code(s): I10 - Essential (primary) hypertension Status: Acute (3) Nutrition, metabolism, and development symptoms Code(s): R63.8 - Other symptoms and signs concerning food and fluid intake Status: Acute (4) Current smoker Code(s): F17.200 - Nicotine dependence, unspecified, uncomplicated Status: Acute <Regi Del Rio - 05/16/18 11:12> - Assessment and Plan 33-year-old male with history of hypertension presents the ED with right ankle pain. X-ray demonstrates mildly displaced bimalleolar fractures. Mildly displaced bimalleolar fracture right ankle -Orthopedic surgery consulted, appreciated recommendations. Patient will be taken to the OR today for open treatment internal fixation of right ankle fracture with plates and screws. Patient understands that he will be nonweightbearing for approximately 8 weeks. Hypertension -Continue home losartan and HCTZ Current smoker -Nicotine patch -Remove at night Fluids: None Diet: NPO for surgery today vitals q4h, monitor I & Os DVT ppx: SCD on left leg, Lovenox one time dose yesterday, will coordinate with ortho for VTE ppx post surgery Dispo: will need to be cleared from ortho standpoint. Patient states that he has a PCP back in [place], [place]. Patient will need to have PT and Ortho follow up. <Regi Del Rio T - 05/16/18 11:16> - Attending Attestation The exam, history, and the medical decision-making described in the above note were completed with the assistance of the resident physician. I reviewed and agree with the findings presented. I attest that I had a [id number] encounter with the patient on the same day, and personally performed and documented my assessment and findings in the medical record. Patient ready for and agrees on surgery today. Can wiggle toes and has good sensation and cap refill on digits of right toe protruding from splint. to OR with ortho for ORIF today. Mildly displaced bimalleolar fracture right ankle -Orthopedic surgery consulted, appreciated recommendations ORIF today Hypertension -Continue home losartan and HCTZ Current smoker -Nicotine patch <Baljit Meek - 05/16/18 12:21> <Regi Del Rio T - Last Filed: 05/16/18 11:12> (1) Bimalleolar fracture of right ankle Qualifiers: Encounter type: initial encounter Fracture type: closed Qualified Code(s): S82.841A - Displaced bimalleolar fracture of right lower leg, initial encounter for closed fracture <Baljit Meek - Last Filed: 05/16/18 12:21> (1) Bimalleolar fracture of right ankle Qualifiers: Encounter type: initial encounter Fracture type: closed Qualified Code(s): S82.841A - Displaced bimalleolar fracture of right lower leg, initial encounter for closed fracture <Regi Del Rio - Last Filed: 05/16/18 11:12> (1) Bimalleolar fracture of right ankle Qualifiers: Encounter type: initial encounter Fracture type: closed Qualified Code(s): S82.841A - Displaced bimalleolar fracture of right lower leg, initial encounter for closed fracture <Baljit Meek - Last Filed: 05/16/18 12:21> (1) Bimalleolar fracture of right ankle Qualifiers: Encounter type: initial encounter Fracture type: closed Qualified Code(s): S82.841A - Displaced bimalleolar fracture of right lower leg, initial encounter for closed fracture
[2018-05-16] MEDS ORDERED: Haloperidol Inj 5 MG/ML Ampul IV.PUSH PRN (11:39)
[2018-05-16] MEDS ORDERED: LORazepam 1 MG Tablet PO PRN (11:39)
[2018-05-16] MEDS ORDERED: ceFAZolin 2 GM Premix Inj 2 GM/50 ML PIGGYBACK IV.SIG ONE (13:31)
[2018-05-16] MEDS ORDERED: Phenylephrine/NS 1000 MCG/10ML Syringe IV.PUSH ONE (13:44)
[2018-05-16] MEDS ORDERED: Succinylcholine Inj 100 MG/5 ML Syringe IV.PUSH ONE (13:44)
[2018-05-16] MEDS ORDERED: Lidocaine PF 1% Inj 5 ML Syringe OTHER ONE (13:44)
[2018-05-16] MEDS ORDERED: Ketorolac Inj 30 MG/ML (IVP) Vial IV.PUSH ONE (13:44)
[2018-05-16] MEDS ORDERED: Temazepam 15 MG Capsule PO PRN (15:08)
[2018-05-16] MEDS ORDERED: Post-op Orders (for Pharmacy) OTHER STA (15:08)
[2018-05-16] MEDS ORDERED: Bisacodyl 10 MG Supp RECTAL PRN (15:08)
--- NOTE | 2018-05-16 15:14 | P.OP ---
- Preoperative Diagnosis (1) Bimalleolar fracture of right ankle - Postoperative Diagnosis (1) Bimalleolar fracture of right ankle Date of procedure: 05/16/18 Procedure: Open treatment internal fixation right ankle fracture with lateral plates and screws and medial cannulated screws Anesthesia: ZACKERY Surgeon: Diego Ivan MD Ruffler: MARYANN Avila Operation and Findings: EBL: Minimal cc INDICATION: This patient is a 33-year-old white male who tripped and fell yesterday sustaining an injury to his right ankle. Investigative studies shows evidence of a bimalleolar fracture of the right ankle. He presents for surgical treatment. NOTE: Kinjal Avila PA-C was present for the entire surgical procedure as my first mate. In my medical opinion her skill and care was necessary for the proper management of this patient. PROCEDURE: The patient brought to the operating room and anesthetized in the supine position. The right leg was visualized under fluoroscopy. Antibiotics were given within an one hour time window and a timeout was done. The lateral side was approached. After exsanguination the tourniquet was inflated to 250 mmHg. A longitudinal incision was made. The fracture was exposed. Multiple clamps used to hold this in proper position. A proper length ITS locking plate was positioned and held. Multiple screws were placed as well as a lag screw. Overall alignment was satisfactory case was noted. The wound was closed in layers with 2-0 Vicryl 3-0 Vicryl and 3-0 nylon mattress sutures. A medial incision was made. A clamp was used to hold the medial malleolus and anatomic alignment. A cannulated screw system was utilized. 2 pins were placed in good fashion and position. There measured carefully. They were drilled and the proper length screws were advanced across the wire across the fracture. The fracture was reduced anatomically. The wound was closed with 3- 0 nylon in a mattress fashion The wound was irrigated copiously and hemostasis was controlled. Intraoperative imaging showed anatomic reduction. Alignment was satisfactory. A posterior splint was fitted and applied. The patient was awakened and taken to recovery room satisfactory condition. The sponge count and needle count and sponge counts were all correct FINDINGS: The lateral ankle fracture was very unstable. The medial ankle fracture was unstable but anatomically aligned. Final fixation was felt to be excellent.
[2018-05-16] MEDS ORDERED: fentaNYL Citrate Inj 100 MCG/2 ML Ampul ONE ×2 (15:46)
[2018-05-16] MEDS ORDERED: *morphine SULFATE 4 MG/ML PERIprocedure ONLY ONE (16:08)
--- NOTE | 2018-05-16 16:58 | XR ---
EXAM DATE: 05/16/2018 12:00 AM EDT AGE/SEX: 33 years / Male INDICATIONS: ORIF of the ankle done in the operating room. CLINICAL DATA: This is the patient's initial encounter. Patient reports that signs and symptoms have been present for 1 day and indicates a pain score of Nonresponsive. MEDICAL/SURGICAL HISTORY: None. None. COMPARISON: [facility] [place] COMPLETE RIGHT MIN 3V, 05/15/2018. . FINDINGS: Fluoroscopic images of the right ankle demonstrate lateral plate and screw fixation of the lateral ma lleolus. There is compression screw fixation of the medial malleolus. Hardware is well-positioned wit h near-anatomic alignment. CONCLUSION: 1. Left ankle ORIF, as above. Electronically signed by: Ángel Hernandez MD 05/16/2018 4:56 PM EDT
[2018-05-16] MEDS: Senna/Docusate Sodium 8.6/50 MG Tablet PO SCH (21:06)
[2018-05-16] MEDS: Multivitamin/Minerals Therapeutic Tablet PO SCH (21:07)
[2018-05-17] MEDS: Morphine Inj 4 MG/ML Vial IV.PUSH PRN ×3 (03:43→13:05)
[2018-05-17 07:08] LABS: Hematocrit 40.8 % (39.0-51.0); Mean Corpuscular HGB Conc 34.4 % (32.0-36.0); Mean Corpuscular Hemoglobin 30.9 pg (27.0-34.0); Mean Platelet Volume 7.5 fL (7.0-11.0); Platelet Count 270 th/mm3 (150-450); Red Blood Count 4.54 mil/mm3 (4.50-5.90); Red Cell Distribution Width 13.7 % (11.6-17.2); White Blood Count 14.7 th/mm3 (4.0-11.0)
[2018-05-17 07:42] LABS: Calcium 8.4 mg/dL (8.5-10.1); Carbon Dioxide 31.7 meq/L (21.0-32.0)
--- NOTE | 2018-05-17 08:14 | P.PNOP ---
Subjective Interval history: Doing well. Moderate pain Physical Exam Vital signs: Vital Signs 05/16/18 15:42 05/16/18 16:00 05/16/18 16:06 Temperature 98 F 98.0 F Pulse Rate 79 62 Respiratory Rate 18 21 Blood Pressure 120/95 H 113/58 L Pulse Oximetry 95 94 L 95 05/16/18 16:15 05/16/18 16:30 05/16/18 20:00 Temperature 98 F 97.3 F L Pulse Rate 68 66 72 Respiratory Rate 18 18 18 Blood Pressure 117/63 118/63 96/55 L Pulse Oximetry 95 95 95 05/16/18 21:17 05/17/18 00:00 05/17/18 04:00 Temperature 98.1 F 98 F Pulse Rate 70 96 H 100 H Respiratory Rate 18 20 Blood Pressure 118/62 106/52 L 131/68 Pulse Oximetry 96 96 Intake & Output 05/16/18 05/17/18 05/17/18 18:59 06:59 18:59 Intake Total 1510 / 1510 504 / 504 Output Total 655 / 655 301 / 301 Balance 855 / 855 203 / 203 Weight 137.5 kg Intake: IV 50 / 50 504 / 504 LR 1000 mL Inj 1,000 ML @ 80 304 / 304 mls/hr IV.CONT .[id number] [facility] Rx# :[id number] Ancef 2 GM Premix Inj 2 gm In 50 / 50 50 ml @ 0 mls/hr IV.SIG .STK- [facility] Rx#:[id number] Ancef Inj 1,000 MG In NS Inj 200 / 200 100 ML @ 200 mls/hr IV.SIG Q6H [facility] Rx#:[id number] Oral 460 / 460 Anesthesia Amount 1000 / 1000 Output: Urine 650 / 650 300 / 300 Stool 1 / 1 Estimated Blood Loss 5 / 5 Other: # Voids 2 1 Date of Last Bowel Movement 05/15/18 Narrative: Dressing dry. Sensation distally normal. No abnormal swelling Results - Labs CBC & Chem 7: 05/17/18 06:45 05/17/18 06:45 Laboratory Results - last 24 hr 05/17/18 05/17/18 06:45 06:45 WBC 14.7 H RBC 4.54 Hgb 14.0 Hct 40.8 MCV 90.0 MCH 30.9 MCHC 34.4 RDW 13.7 Plt Count 270 MPV 7.5 Sodium 137 Potassium 4.0 Chloride 100 Carbon Dioxide 31.7 Anion Gap 5 BUN 17 Creatinine 1.00 Estimated GFR 87 L Random Glucose 94 Calcium 8.4 L - Imaging Impressions Ankle X-Ray 05/16/18 00:00 CONCLUSION: 1. Left ankle ORIF, as above. Assessment and Plan - Assessment and Plan Bimalleolar right ankle fracture. Hypertension. Surgery: Open treatment and internal fixation right ankle fracture with plates and screws: POD #1 PLAN: Doing well postop day #1. Nonweightbearing right ankle. Crutches. Discharge to home. We will follow-up in 2-3 weeks with his home physician or orthopedic surgeon in [place]. The patient is visiting. [place] for pain, prescription written. No dressing change. Stable orthopedically
[2018-05-17] MEDS: hydroCHLOROthiazide 25 MG Tablet PO SCH (08:39)
[2018-05-17] MEDS: Multivitamin/Minerals Therapeutic Tablet PO SCH (08:39)
[2018-05-17] MEDS: Senna/Docusate Sodium 8.6/50 MG Tablet PO SCH (08:39)
--- NOTE | 2018-05-17 12:30 | P.PNFP ---
Subjective Interval history: No acute events overnight. Patient is still in significant pain in the ankle postsurgically. He is eating and drinking well and feels ready for discharge. <Josue Evans - 05/17/18 12:29> Results - Labs Result diagrams: 05/17/18 06:45 05/17/18 06:45 <Baljit Meek - 05/17/18 13:14> Abnormal lab results 05/17/18 05/17/18 Range/Units 06:45 06:45 WBC 14.7 H (4.0-11.0) th/mm3 Estimated GFR 87 L (>89) mL/min Calcium 8.4 L (8.5-10.1) mg/dL Short CBC 05/17/18 Range/Units 06:45 WBC 14.7 H (4.0-11.0) th/mm3 Hgb 14.0 (13.0-17.0) gm/dL Hct 40.8 (39.0-51.0) % Plt Count 270 (150-450) th/mm3 BMP 05/17/18 06:45 Sodium 137 Potassium 4.0 Chloride 100 Carbon Dioxide 31.7 BUN 17 Creatinine 1.00 Calcium 8.4 L <Baljit Meek - 05/17/18 13:14> Abnormal lab results 05/17/18 05/17/18 Range/Units 06:45 06:45 WBC 14.7 H (4.0-11.0) th/mm3 Estimated GFR 87 L (>89) mL/min Calcium 8.4 L (8.5-10.1) mg/dL Short CBC 05/17/18 Range/Units 06:45 WBC 14.7 H (4.0-11.0) th/mm3 Hgb 14.0 (13.0-17.0) gm/dL Hct 40.8 (39.0-51.0) % Plt Count 270 (150-450) th/mm3 [facility] 05/17/18 06:45 Sodium 137 Potassium 4.0 Chloride 100 Carbon Dioxide 31.7 BUN 17 Creatinine 1.00 Calcium 8.4 L <Josue Evans - 05/17/18 12:29> - Imaging Impressions Ankle X-Ray 05/16/18 00:00 CONCLUSION: 1. Left ankle ORIF, as above. <Baljit Meek - 05/17/18 13:14> Impressions Ankle X-Ray 05/16/18 00:00 CONCLUSION: 1. Left ankle ORIF, as above. <Josue Evans - 05/17/18 12:29> Physical Exam Vital signs: Vital Signs 05/16/18 15:42 05/16/18 16:00 05/16/18 16:06 Temperature 98 F 98.0 F Pulse Rate 79 62 Respiratory Rate 18 21 Blood Pressure 120/95 H 113/58 L Pulse Oximetry 95 94 L 95 05/16/18 16:15 05/16/18 16:30 05/16/18 20:00 Temperature 98 F 97.3 F L Pulse Rate 68 66 72 Respiratory Rate 18 18 18 Blood Pressure 117/63 118/63 96/55 L Pulse Oximetry 95 95 95 05/16/18 21:17 05/17/18 00:00 05/17/18 04:00 Temperature 98.1 F 98 F Pulse Rate 70 96 H 100 H Respiratory Rate 18 20 Blood Pressure 118/62 106/52 L 131/68 Pulse Oximetry 96 96 05/17/18 08:00 05/17/18 12:00 Temperature 98.0 F 97.9 F Pulse Rate 73 82 Respiratory Rate 18 18 Blood Pressure 134/65 122/68 Pulse Oximetry 95 93 L Intake & Output 05/16/18 05/17/18 05/17/18 18:59 06:59 18:59 Intake Total 1510 / 1510 504 / 504 Output Total 655 / 655 301 / 301 Balance 855 / 855 203 / 203 Weight 137.5 kg Intake: IV 50 / 50 504 / 504 LR 1000 mL Inj 1,000 ML @ 80 304 / 304 mls/hr IV.CONT .[id number] [facility] Rx# :[id number] Ancef 2 GM Premix Inj 2 gm In 50 / 50 50 ml @ 0 mls/hr IV.SIG .STK- MED ONE Rx#:[id number] Ancef Inj 1,000 MG In NS Inj 200 / 200 100 ML @ 200 mls/hr IV.SIG Q6H [facility] Rx#:[id number] Oral 460 / 460 Anesthesia Amount 1000 / 1000 Output: Urine 650 / 650 300 / 300 Stool 1 / 1 Estimated Blood Loss 5 / 5 Other: # Voids 2 1 Date of Last Bowel Movement 05/15/18 <Baljit Meek Herminio - 05/17/18 13:14> Vital Signs 05/16/18 15:42 05/16/18 16:00 05/16/18 16:06 Temperature 98 F 98.0 F Pulse Rate 79 62 Respiratory Rate 18 21 Blood Pressure 120/95 H 113/58 L Pulse Oximetry 95 94 L 95 05/16/18 16:15 05/16/18 16:30 05/16/18 20:00 Temperature 98 F 97.3 F L Pulse Rate 68 66 72 Respiratory Rate 18 18 18 Blood Pressure 117/63 118/63 96/55 L Pulse Oximetry 95 95 95 05/16/18 21:17 05/17/18 00:00 05/17/18 04:00 Temperature 98.1 F 98 F Pulse Rate 70 96 H 100 H Respiratory Rate 18 20 Blood Pressure 118/62 106/52 L 131/68 Pulse Oximetry 96 96 05/17/18 08:00 Temperature 98.0 F Pulse Rate 73 Respiratory Rate 18 Blood Pressure 134/65 Pulse Oximetry 95 Intake & Output 05/16/18 05/17/18 05/17/18 18:59 06:59 18:59 Intake Total 1510 / 1510 504 / 504 Output Total 655 / 655 301 / 301 Balance 855 / 855 203 / 203 Weight 137.5 kg Intake: IV 50 / 50 504 / 504 LR 1000 mL Inj 1,000 ML @ 80 304 / 304 mls/hr IV.CONT .[id number] [facility] Rx# :[id number] Ancef 2 GM Premix Inj 2 gm In 50 / 50 50 ml @ 0 mls/hr IV.SIG .STK- MED ONE Rx#:[id number] Ancef Inj 1,000 MG In NS Inj 200 / 200 100 ML @ 200 mls/hr IV.SIG Q6H [facility] Rx#:[id number] Oral 460 / 460 Anesthesia Amount 1000 / 1000 Output: Urine 650 / 650 300 / 300 Stool 1 / Estimated Blood Loss 5 / 5 Other: # Voids 2 1 Date of Last Bowel Movement 05/15/18 <Josue Evans - 05/17/18 12:29> Narrative: General: no acute distress Cardio: Regular rate rhythm, no murmurs rubs or gallops Respiratory: Clear to auscultation bilaterally no wheezing or crackles Abdomen: Soft, nontender, nondistended, positive bowel sounds Extremities: Right leg dressed, CDI, neurovascularly intact Neuro: Alert and oriented <Josue Evans - 05/17/18 12:29> Assessment and Plan - Assessment (1) Bimalleolar fracture of right ankle Code(s): S82.841A - Displaced bimalleolar fracture of right lower leg, initial encounter for closed fracture Status: Acute (2) Hypertension Code(s): I10 - Essential (primary) hypertension Status: Acute (3) Nutrition, metabolism, and development symptoms Code(s): R63.8 - Other symptoms and signs concerning food and fluid intake Status: Acute (4) Current smoker Code(s): F17.200 - Nicotine dependence, unspecified, uncomplicated Status: Acute <FantasmaBaljit - 05/17/18 13:14> (1) Bimalleolar fracture of right ankle Code(s): S82.841A - Displaced bimalleolar fracture of right lower leg, initial encounter for closed fracture Status: Acute (2) Hypertension Code(s): I10 - Essential (primary) hypertension Status: Acute (3) Nutrition, metabolism, and development symptoms Code(s): R63.8 - Other symptoms and signs concerning food and fluid intake Status: Acute (4) Current smoker Code(s): F17.200 - Nicotine dependence, unspecified, uncomplicated Status: Acute <Josue Evans - 05/17/18 12:22> - Assessment and Plan 33-year-old male s/p ORIF right ankle Mildly displaced bimalleolar fracture right ankle -s/p ORIF of right ankle, POD 1 -non-weight bearing for 8 weeks -crutches ordered -[place] for pain at home -cleared by Ortho for discharge Hypertension -Continue home losartan and HCTZ Current smoker -Nicotine patch -Remove at night Fluids: adequate PO intake Diet: regular diet, tolerating well DVT ppx: SCD on left leg, ASA 81mg BID for 3 weeks post-op Dispo:Anticipate DC home today <Josue Evans - 05/17/18 12:29> - Attending Attestation The exam, history, and the medical decision-making described in the above note were completed with the assistance of the resident physician. I reviewed and agree with the findings presented. I attest that I had a [id number] encounter with the patient on the same day, and personally performed and documented my assessment and findings in the medical record. Doing well post-op, pain controlled, tender to touch. He is ready to leave the hospital. HTN reasonably controlled OK to d/c per ortho, NWB with crutches until can establish with orthopedist in [place]. <Baljit Meek - 05/17/18 13:14> <Josue Evans J - Last Filed: 05/17/18 12:22> (1) Bimalleolar fracture of right ankle Qualifiers: Encounter type: initial encounter Fracture type: closed Qualified Code(s): S82.841A - Displaced bimalleolar fracture of right lower leg, initial encounter for closed fracture <Baljit Meek K - Last Filed: 05/17/18 13:14> (1) Bimalleolar fracture of right ankle Qualifiers: Encounter type: initial encounter Fracture type: closed Qualified Code(s): S82.841A - Displaced bimalleolar fracture of right lower leg, initial encounter for closed fracture <Josue Evans - Last Filed: 05/17/18 12:22> (1) Bimalleolar fracture of right ankle Qualifiers: Encounter type: initial encounter Fracture type: closed Qualified Code(s): S82.841A - Displaced bimalleolar fracture of right lower leg, initial encounter for closed fracture <Baljit Meek - Last Filed: 05/17/18 13:14> (1) Bimalleolar fracture of right ankle Qualifiers: Encounter type: initial encounter Fracture type: closed Qualified Code(s): S82.841A - Displaced bimalleolar fracture of right lower leg, initial encounter for closed fracture
--- NOTE | 2018-05-17 12:34 | P.DS ---
Date of admission: 05/15/18 09:19 Primary care physician: UNKNOWN Brief History from admission: 33-year-old male with hypertension presents to the ED with right ankle pain. Patient is visiting from [place], [place]. He states that he is here with his kids and their mother. States that he woke up in the middle the night and went outside to smoke a cigarette. He then fell asleep and woke up with his leg caught in the rail. As he was standing up, he tripped and fell. He began to have swelling and redness immediately in his right ankle. He was unable to bear weight. He did not hit his head and denies loss of consciousness. Denies nausea and vomiting, vision changes, headache, seizure- like activity, chest pain, shortness of breath. He has not injured his ankle in the past. He states that his left ankle collapse about 3 years ago. States that his pain is 6 out of 10 right now after receiving pain medications in the ED. He is able to wiggle his toes and sensation is intact. No other complaints. 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[employer] Smoking 1-1/2ppd for 19 years Drinking- 4 days a week- 2-3 beers Denies illicit drug use DS: Diagnosis - Discharge Diagnosis (1) Bimalleolar fracture of right ankle Status: Acute (2) Hypertension Status: Acute (3) Nutrition, metabolism, and development symptoms Status: Acute (4) Current smoker Status: Acute DS: Medications - Discharge Medications Prescriptions: aspirin 81 mg PO BID #90 tab hydrochlorothiazide 25 mg PO DAILY #90 tab hydrocodone-acetaminophen 1 tab PO Q4H PRN #42 tab PRN Reason: Acute Pain losartan 100 mg PO DAILY #90 tab DS: Summary Hospital Course: Patient was admitted with right bimalleolar fracture and plan for ORIF. The repair went well and the patient did well postoperatively. He was discharged home with [place] for pain control and aspirin 81 mg twice daily for 3 weeks per orthopedics. He will follow up with his primary care physician after returning home to [place]. - Time Spent with Patient Total time spent providing and/or coordinating discharge services: Less than 30 minutes Exam Vital signs: Vital Signs 05/16/18 15:42 05/16/18 16:00 05/16/18 16:06 Temperature 98 F 98.0 F Pulse Rate 79 62 Respiratory Rate 18 21 Blood Pressure 120/95 H 113/58 L Pulse Oximetry 95 94 L 95 05/16/18 16:15 05/16/18 16:30 05/16/18 20:00 Temperature 98 F 97.3 F L Pulse Rate 68 66 72 Respiratory Rate 18 18 18 Blood Pressure 117/63 118/63 96/55 L Pulse Oximetry 95 95 95 05/16/18 21:17 05/17/18 00:00 05/17/18 04:00 Temperature 98.1 F 98 F Pulse Rate 70 96 H 100 H Respiratory Rate 18 20 Blood Pressure 118/62 106/52 L 131/68 Pulse Oximetry 96 96 05/17/18 08:00 Temperature 98.0 F Pulse Rate 73 Respiratory Rate 18 Blood Pressure 134/65 Pulse Oximetry 95 Intake & Output 05/16/18 05/17/18 05/17/18 18:59 06:59 18:59 Intake Total 1510 / 1510 504 / 504 Output Total 655 / 655 301 / 301 Balance 855 / 855 203 / 203 Weight 137.5 kg Intake: IV 50 / 50 504 / 504 LR 1000 mL Inj 1,000 ML @ 80 304 / 304 mls/hr IV.CONT .[id number] [facility] Rx# :[id number] Ancef 2 GM Premix Inj 2 gm In 50 / 50 50 ml @ 0 mls/hr IV.SIG .STK- [facility] ONE Rx#:[id number] Ancef Inj 1,000 MG In NS Inj 200 / 200 100 ML @ 200 mls/hr IV.SIG Q6H [facility] Rx#:[id number] Oral 460 / 460 Anesthesia Amount 1000 / 1000 Output: Urine 650 / 650 300 / 300 Stool 1 / 1 Estimated Blood Loss 5 / 5 Other: # Voids 2 1 Date of Last Bowel Movement 05/15/18 Results Procedures completed during hospitalization: ORIF ankle Labs on day of discharge: Labs from last 24 hours 05/17/18 05/17/18 06:45 06:45 WBC 14.7 H RBC 4.54 Hgb 14.0 Hct 40.8 MCV 90.0 MCH 30.9 MCHC 34.4 RDW 13.7 Plt Count 270 MPV 7.5 Sodium 137 Potassium 4.0 Chloride 100 Carbon Dioxide 31.7 Anion Gap 5 BUN 17 Creatinine 1.00 Estimated GFR 87 L Random Glucose 94 Calcium 8.4 L - Impressions ITS Impressions Ankle X-Ray 05/16/18 00:00 CONCLUSION: 1. Left ankle ORIF, as above. Discharge Plan - Discharge Disposition Patient Disposition: Discharge Home - Discharge Condition Condition: Stable - Discharge Order Discharge Orders: Discharge Order (Routine); Ordered 05/17/18 Ordered By: Regi Del [place] - Physicians Team Primary Care Provider: UNKNOWN, Attending Provider: Baljit Meek Other Providers: Diego Ivan MD
== END 2018-05-17 13:23 | disposition home or self-care (01) ==
LOC: NEDA 07:11 → NEPD 07:11 → NEDA 10:26 → N05 13:23
PROVIDERS: ADMIT Family Medicine; ATTEND Family Medicine
PROC: ORIFANK (2018-05-16 13:44)
DX: F17.210 Nicotine dependence, cigarettes, uncomplicated; I10 Essential (primary) hypertension; W01.0XXA Fall on same level from slipping, tripping and stumbling without subsequent striking against object, initial encounter; S82.841A Displaced bimalleolar fracture of right lower leg, initial encounter for closed fracture